=== PATIENT | female | born 2000 | race Asian ===

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

== ENCOUNTER 2022-02-20 16:27 | Outpatient (REF) | payer OTHER, SELFPAY ==
[2022-02-20 14:59] LABS: HCT 39.4 % (36.0-46.0); HGB 12.3 g/dL (11.2-15.7); MCH 26.5 pg (27.0-33.0); MCHC 31.2 % (32.0-36.0); MCV 84.7 fL (80-95); MPV 10.5 fL (8.0-11.0); Platelet Count 245 10^3/uL (130-400); RBC 4.65 10^6/uL (3.93-5.22); RDW 12.8 % (11.7-14.6); RDW-SD 39.9 fL; WBC 7.19 10^3/uL (4.4-10.8)
[2022-02-20 15:50] LABS: ALT 18 U/L (14-59); AST 17 U/L (15-37); Albumin 4.4 g/dL (3.4-5.0); Alkaline Phosphatase 61 U/L (46-116); BUN 20 mg/dL (7-18); Bilirubin, Total 0.4 mg/dL (0.2-1.0); Calcium 8.8 mg/dL (8.5-10.1); Chloride 106 mmol/L (98-107); Glucose 111 mg/dL (74-106); Lipase 110 U/L (73-393); Potassium 4.2 mmol/L (3.5-5.1); Sodium 140 mmol/L (136-145); Total Protein 7.4 g/dL (6.4-8.2)
== END 2022-02-20 16:28 | disposition home or self-care (01) ==
LOC: NCHCN 16:27
PROVIDERS: PCP Internal Medicine; Visit Provider Internal Medicine
DX: R10.13 Epigastric pain (principal)
CPT/HCPCS: 80053; 83690; 85027

== ENCOUNTER 2024-10-27 19:58 | Outpatient (REF) | payer OTHER, SELFPAY ==
[2024-10-27 15:16] LABS: Abs Immature Grans 0.02 10^3/uL (0.0-0.06); Absolute Basophil Count 0.04 10^3/uL (0.0-0.2); Absolute Lymphocyte Count 1.13 10^3/uL (1.2-3.4); Absolute Monocyte Count 0.35 10^3/uL (0.1-0.8); Absolute Neutrophil Count 4.54 10^3/uL (1.2-6.7); Basophils % 0.6 %; Eosinophils % 1.6 %; HCT 40.7 % (36.0-46.0); HGB 12.8 g/dL (11.2-15.7); Immature Grans % 0.3 %; Lymphocytes % 18.3 %; MCH 26.6 pg (27.0-33.0); MCHC 31.4 % (32.0-36.0); MCV 84 fL (80-95); MPV 11.3 fL (8.0-11.0); Monocytes % 5.7 %; Neutrophils % 73.5 %; Platelet Count 239 10^3/uL (130-400); RBC 4.82 10^6/uL (3.93-5.22); RDW 12.7 % (11.7-14.6); WBC 6.18 10^3/uL (4.4-10.8)
[2024-10-27 15:20] LABS: ESR 14 mm/hr (0-20)
[2024-10-27 15:48] LABS: ALT 14 U/L (14-59); AST 13 U/L (15-37); Albumin 4.5 g/dL (3.4-5.0); Alkaline Phosphatase 47 U/L (46-116); Anion Gap 11.5 mmol/L (3-11); BUN 13 mg/dL (7-18); CO2 24.5 mmol/L (21.0-32.0); CREATININE 0.8 mg/dL (0.55-1.02); Calcium 9.1 mg/dL (8.5-10.1); Chloride 107 mmol/L (98-107); Estimated GFR 106.77 (mL/min/1.73m2); Glucose 99 mg/dL (74-106); Lipase 35 U/L (<78); Potassium 4.3 mmol/L (3.5-5.1); Sodium 143 mmol/L (136-145); TSH (W/Ref FT4) 0.94 uIU/mL (0.36-3.74); Total Protein 8.1 g/dL (6.4-8.2)
[2024-10-27 15:49] LABS: C-Reactive Protein < 0.50 mg/dL (<or=0.5)
--- OUTSIDE RECORDS SUMMARY | 2024-10-27 20:37 | XMS_ITS | Clinical Summary ---
Author Organization [facility] Address [address] [place] [address] Care Team Providers Care Chairman President And Chief Executive Officer Name Role Phone Simeon Alexander MD Primary Care Provider [phone] Encounters Date Type Department Care Team Description 10/27/2024 Lab Requisition [facility] Pathology & Laboratory Medicine - [facility] [address] [place] [address] Outr Resulting Lab, Provider from Last 3 Months Social History Tobacco Use Types Packs/Day Years Used Date Smoking Tobacco: Never Assessed Comments Unknown Sex and Gender Information Value Date Recorded Sex Assigned at Not on file Legal Sex Female 18:41 EST Gender Identity Not on file Sexual Orientation Not on file Plan of Treatment Health Maintenance Due Date Last Done Comments Hepatitis C Screen 2002 Hepatitis B Vaccine (1 of 3 - 19+ 3-dose series) 01/01 COVID-19 Vaccine ( season) 2024 Care Teams Chairman President And Chief Executive Officer Relationship Specialty Start Date End Date Simeon Alexander MD [address] [place], [place] [id number] PCP - General 10/09/15
--- OUTSIDE RECORDS SUMMARY | 2024-10-27 20:37 | XMS_ITS | Referral Summary ---
Author Organization [facility] Address [address] [place] [address] Care Team Providers Care Criminalist Name Role Phone Simeon Alexander MD Primary Care Provider [phone] Encounters Date Type Department Care Team Description 10/27/2024 Lab Requisition [facility] Pathology & Laboratory Medicine - [facility] [address] [place] [address] Outr Resulting Lab, Provider from Last 3 Months Social History Tobacco Use Types Packs/Day Years Used Date Smoking Tobacco: Never Assessed Comments Unknown Sex and Gender Information Value Date Recorded Sex Assigned at Not on file Legal Sex Female 18:41 EST Gender Identity Not on file Sexual Orientation Not on file Plan of Treatment Not on file Care Teams Criminalist Relationship Specialty Start Date End Date Simeon Alexander MD [address] [place], [place] [id number] PCP - General 10/09/15
--- OUTSIDE RECORDS SUMMARY | 2024-10-27 20:37 | XMS_ITS | Encounter Summary ---
Author Organization [facility] Address [address] [place] [address] Care Team Providers Care Wind Field Manager Name Role Phone Simeon Alexander MD Primary Care Provider [phone] Encounter Details Date Type Department Care Team (Late st Contact Info) Description 10/27/2024 Lab Requisition [facility] Pathology & Laboratory Medicine - [facility] [address], [place] [address] Outr Resulting Lab, Provider Social History Tobacco Use Types Packs/Day Years Used Date Smoking Tobacco: Never Assessed Comments Unknown Sex and Gender Information Value Date Recorded Sex Assigned at Not on file Legal Sex Female 18:41 EST Gender Identity Not on file Sexual Orientation Not on file documented as of this encounter Plan of Treatment Scheduled Orders Name Type Priority Associated Diagnoses Orde r Schedule CELIAC DISEASE PANEL Lab Routine Orde red: 10/27/2024 documented as of this encounter Visit Diagnoses Not on filedocumented in this encounter Care Teams Wind Field Manager Relationship Specialty Start Date End Date Simeon Alexander MD [address] [place], [place] [id number] PCP - General 10/09/15 documented as of this encounter
--- OUTSIDE RECORDS SUMMARY | 2024-10-27 20:37 | XMS_ITS | Encounter Summary ---
Author Organization [facility] Address [address] [place] [address] Care Team Providers Care Non Profit Director Name Role Phone Simeon Alexander MD Primary Care Provider [phone] Encounter Details Date Type Department Care Team (Late st Contact Info) Description 10/31/2019 Lab Requisition [facility] Pathology & Laboratory Medicine - [address] [address] Unknown, Provider, Social History Tobacco Use Types Packs/Day Years Used Date Smoking Tobacco: Never Assessed Comments Unknown Sex and Gender Information Value Date Recorded Sex Assigned at Not on file Legal Sex Female 18:41 EST Gender Identity Not on file Sexual Orientation Not on file documented as of this encounter Plan of Treatment Not on file documented as of this encounter Procedures Procedure Name Priority Date/Time Associated Diagnosis Comments QUANTIFERON TB GOLD PLUS Routine 10/30/2019 13:16 EST documented in this encounter Results * QUANTIFERON TB GOLD PLUS (10/30/2019 13:16 EST) Quantiferon Interpretation Negative Negative 11/04/2019 15:10 EST [facility] Comment: No interferon-gamma response to M. tuberculosis antigens was detected. ??Infection with M. tuberculosis is unlikely. A single negative result does not exclude infection with M. tuberculosis. ??In patients at high risk for M. tuberculosis infection, a second test should be considered in accordance with the 2017 ATS/IDSA/CDC Clinical Practice Guidelines for Diagnosis of Tuberculosis in Adults and Children. [Ritika ACEVES et. al. Clin. Infect. Dis. 2017:64 (2) ??: 111-115]. Results were obtained with the Qiagen QuantiFERON TB Gold Plus SUSIE. TB1 Ag minus Nil 0.00 IU/ml 11/04/20 19 15:10 EST [facility] TB2 Ag minus Nil 0.04 IU/mL 11/04/20 19 15:10 EST [facility] Blood VENOUS BLOOD / Unknown 10/30/2019 13:16 EST 11/04/2019 11:00 EST Narrative [facility] - 11/04/2019 15:10 EST Results were obtained with the [employer]agen QuantiFERON-TB Gold Plus SUSIE. us Provider Unknown CHEMISTRY & BLOOD GAS ORDERA BLES Final Result [facility] [address] [place] [address] documented in this encounter Visit Diagnoses Not on filedocumented in this encounter Care Teams Non Profit Director Relationship Specialty Start Date End Date Simeon Alexander MD [address] [place] [address] PCP - General 10/09/15 documented as of this encounter
[2024-10-28 10:21] LABS: IgA 269 mg/dL (85-499); Interpretation (See Note); Tissue Transglutaminase IgA <4.0 CU (<20.0)
== END 2024-10-27 19:59 | disposition home or self-care (01) ==
LOC: NCHCN 19:58
PROVIDERS: PCP Family Medicine; Visit Provider Family Medicine
DX: K92.1 Melena (principal); R10.13 Epigastric pain; R63.4 Abnormal weight loss
CPT/HCPCS: 80053; 82784; 83516; 83690; 85652; 87338; 83993; 84443; 85025; 86140